=== PATIENT | male | born 1960 | race African-American/Black ===

== ENCOUNTER 2024-03-29 12:17 | Inpatient (IN) | payer OTHER ==
[2024-03-29 13:17] VITALS: BMI 20.9
[2024-03-29] MEDS ORDERED: TRIMETHOBENZAMIDE HCL 200MG/2ML INJ IM ONE (13:23)
[2024-03-29] MEDS ORDERED: ACETAMINOPHEN 325 MG TABLET (FP) PO PRN (13:35)
[2024-03-29] MEDS ORDERED: NICOTINE POLACRILEX 2 MG GUM BUC PRN (13:35)
[2024-03-29] MEDS ORDERED: NICOTINE POLACRILEX 2 MG LOZENGE BC PRN (13:35)
[2024-03-29] MEDS ORDERED: IBUPROFEN 400 MG TABLET (FP) PO PRN (13:35)
[2024-03-29] MEDS: TRIMETHOBENZAMIDE HCL 200MG/2ML INJ IM ONE (13:35)
[2024-03-29] MEDS ORDERED: POLYETHYLENE GLYCOL (HEALTHYLAX) 3350 17 GM PACKET PO PRN (13:35)
[2024-03-29] MEDS ORDERED: DICYCLOMINE HCL 10 MG CAPSULE PO PRN (13:35)
[2024-03-29] MEDS ORDERED: BISMUTH SUBSALICYLATE 524 MG/30 ML PO PRN (13:35)
[2024-03-29] MEDS ORDERED: LOPERAMIDE HCL 2 MG CAPSULE PO PRN (13:35)
[2024-03-29] MEDS ORDERED: ONDANSETRON *ODT* 4 MG TABLET SL PRN (13:35)
[2024-03-29] MEDS ORDERED: MAG HYDROX/AL HYDROX/SIMETH 30 ML UNIT-DOSE CUP PO PRN (13:35)
[2024-03-29] MEDS ORDERED: MAGNESIUM HYDROX 2400MG/30ML ORAL SUSPENSION 30 ML CUP PO PRN (13:35)
[2024-03-29] MEDS ORDERED: guaiFENesin 600 MG TABLET.ER (FP) PO PRN (13:35)
[2024-03-29] MEDS ORDERED: BENZONATATE 200 MG CAPSULE PO PRN (13:35)
[2024-03-29] MEDS ORDERED: BENZOCAINE/MENTHOL (CHLORASEPTIC ) LOZENGE MM PRN (13:35)
[2024-03-29] MEDS ORDERED: chlordiazePOXIDE HCL 25 MG CAPSULE PO PRN (13:37)
[2024-03-29] MEDS ORDERED: chlordiazePOXIDE HCL 25 MG CAPSULE ONE (14:20)
[2024-03-29] MEDS: chlordiazePOXIDE HCL 25 MG CAPSULE PO ONE (14:21)
[2024-03-29] MEDS: IBUPROFEN 600 MG TABLET (FP) PO PRN (16:02)
[2024-03-29] MEDS: chlordiazePOXIDE HCL 25 MG CAPSULE PO SCH (17:55)
[2024-03-29] MEDS: MELATONIN 5 MG TABLETS PO SCH (22:29)
[2024-03-29] MEDS: THIAMINE 100 MG TABLET PO SCH (22:29)
[2024-03-30] MEDS: PRENATAL VITAMINS W/ FOLIC ACID TABLET (FP) PO SCH (10:56)
[2024-03-30] MEDS ORDERED: methaDONE HCL 40 MG DISPERSABLE TABLET PO SCH (11:15)
[2024-03-30] MEDS: methaDONE 80 MG, methaDONE 10 MG PO SCH (11:22)
[2024-03-30 12:00] LABS: HEMATOCRIT 41.9 % (35.4-49); HEMOGLOBIN 14.6 GM/dL (11.7-16.9); MCH 35.3 pg (25.7-33.7); MCHC 34.8 g/dl (32.0-35.9); MEAN CELL VOLUME 101.6 fl (80-96); MEAN PLT VOLUME 9.1 fl (7.5-11.1); PLATELET COUNT 129 10^3/uL (134-434); POTASSIUM 4.1 mmol/L (3.5-5.1); RBC 4.12 M/mm3 (4.00-5.60); RDW 12.3 % (11.9-15.9); WHITE BLOOD COUNT 6.5 K/mm3 (4.0-10.0)
[2024-03-30 12:08] LABS: BLOOD UREA NITROGEN 7.3 mg/dL (7-18)
[2024-03-30 12:09] LABS: ALBUMIN 3.6 g/dl (3.4-5.0); CALCIUM 8.9 mg/dL (8.5-10.1)
[2024-03-30 12:10] LABS: BILIRUBIN,TOTAL 0.8 mg/dL (0.2-1)
[2024-03-30 12:12] LABS: CREATININE 0.6 mg/dL (0.55-1.3)
[2024-03-31] MEDS: chlordiazePOXIDE HCL 25 MG CAPSULE PO SCH (05:24)
[2024-03-31] MEDS: BICTEGRAV/EMTRICIT/TENOFOV (BIKTARVY) 50-200-25 MG TABLET PO SCH (07:28)
[2024-03-31] MEDS ORDERED: PATIENT'S OWN MEDICATION (NON-FORMULARY) (Amlodipine/Atorvastatin [Amlodipine-Atorvast 10- PO SCH (10:00)
[2024-03-31] MEDS ORDERED: PATIENT'S OWN MEDICATION (NON-FORMULARY) (Amlodipine/Atorvastatin [Amlodipine-Atorvast 10- OD SCH (10:00)
[2024-03-31] MEDS: ATORVASTATIN CA 10 MG TABLET (FP) PO SCH (10:21)
[2024-03-31] MEDS: METHOCARBAMOL 500 MG TABLET PO PRN (10:21)
[2024-03-31] MEDS: amLODIPine BESYLATE 10 MG TABLET (FP) PO SCH (10:22)
[2024-03-31] MEDS: PREGABALIN 25 MG CAPSULE PO SCH (11:51)
[2024-04-01] MEDS ORDERED: chlordiazePOXIDE HCL 10 MG CAPSULE PO PRN
[2024-04-01] MEDS: chlordiazePOXIDE HCL 10 MG CAPSULE PO SCH (05:33)
[2024-04-02] MEDS: chlordiazePOXIDE HCL 10 MG CAPSULE PO SCH (05:29)
[2024-04-03] MEDS: chlordiazePOXIDE HCL 10 MG CAPSULE PO ONE (05:18)
[2024-04-03 08:50] VITALS: RESP 17
[2024-04-03 12:40] VITALS: BP 106/68; PULSE 94; TEMP 96.9
== END 2024-04-03 13:15 | disposition home or self-care (01) | DRG 773 ==
LOC: YASAS 12:17 → Y6N 14:12
PROVIDERS: ADMIT Allergy & Immunology; ATTEND Surgery
PROC: HZ2ZZZZ Detoxification Services for Substance Abuse Treatment (ICD-10-PCS; principal; 2024-03-29)
DX: F10.230 Alcohol dependence with withdrawal, uncomplicated (principal); F11.20 Opioid dependence, uncomplicated; F17.210 Nicotine dependence, cigarettes, uncomplicated; Z21 Asymptomatic human immunodeficiency virus [HIV] infection status; G62.9 Polyneuropathy, unspecified; I10 Essential (primary) hypertension; E78.5 Hyperlipidemia, unspecified; Z87.19 Personal history of other diseases of the digestive system; Z86.19 Personal history of other infectious and parasitic diseases; Z79.899 Other long term (current) drug therapy
CPT/HCPCS: 36415; 71046-TC-FY; 80053; 80305; 85027; 86593; 86780; 93005; 93010